=== PATIENT | male | born 1955 | race Caucasian/White ===

== ENCOUNTER 2019-05-03 11:14 | Emergency (ER) | payer MEDICARE, OTHER, SELFPAY ==
[2019-05-03 11:23] VITALS: BP 161/75; PULSE 78; RESP 16; TEMP 37; O2SAT 100
--- NOTE | 2019-05-03 11:45 | DI.RAD_ITS ---
SYMPTOM/DIAGNOSIS: TRAUMA,DISTAL INDEX AND MIDDLE FINGER LEFT HAND: 05/03 Three views were obtained and show soft tissue defects of the distal index and middle fingers. No underlying fracture or other significant bony abnormality seen.
--- NOTE | 2019-05-03 13:22 | W.ED.GENAD ---
Discharge Plan Disposition Patient Disposition: HOME Condition: Stable Discharge Details Chief Complaint: Laceration Clinical Impression: Laceration of finger, left, complicated Primary Care Provider: Lamine Silver ED Provider: Tommy Arthur Home Meds and New Rx's Prescriptions: New cephalexin [Keflex] 500 mg capsule 500 mg PO QID 5 Days Qty: 20 RF: 0 No Action aspirin [Aspir-81] 81 mg Tablet,Delayed Release (Dr/Ec) 1 RF: 0 Discharge Instructions Instructions: Finger Laceration (ED) Additional Instructions: Please watch wound for any signs of infection or complications return immediately if these occur. Otherwise please leave initial dressing on for the first 48 hours and after that keep wounds clean and dry. If healing well you may start to gently cleanse wounds with mild soap and water after initial dressings are removed. Return to the emergency department 2 weeks for suture removal. Referrals: [facility] Emergency Dept. [Outside] - 2 weeks Discharge Data Discharge Date/Time-TO BE ENTERED AT DEPARTURE: 05/03/19 13:50 Medical Decision Making Patient presenting the emergency department chief complaint of left hand/finger laceration. Patient was using a circular saw when he caught the index and middle finger in the saw. Physical exam shows significant irregular macerated lacerations to the distal aspects of the index and middle finger. The index finger is approximately 2.5 cm and the middle finger is 2.25 cm x 1 cm. Cap refill, sensation, tendon, and two-point discrimination are all intact and normal distal to injury. Patient sent to radiological imaging for for evaluation of any bony involvement. Review of radiological imaging and radiologist dictation shows no bony involvement. Patient verbally consented to digital block and wound closure. 3 mL's of 1% lidocaine was injected into the base of each digit for a total of 6 mL's of 1% lidocaine. Ring tourniquets were placed for hemostasis. Both wounds were thoroughly irrigated with 500 mL's each for total of 1 L of irrigation. Wound sterilely prepped with Betadine and wound closure was performed. Both wounds have irregular flaps and need of wound revision for moderate approximation of wound edges. On left index finger #5 simple interrupted sutures were placed with 4-0 Prolene. Left middle finger needed #4internal 5-0 Vicryl to approximate flaps and edges and then #11 external 4-0 Prolene were utilized to better approximate would not wound edges. Again wound revision was needed for even moderate approximation of flaps. Patient tolerated procedure well and tourniquets were removed with appropriate cap refill afterwards and hemostasis remained appropriate. Wounds were covered with bacitracin and sterile gauze. Patient to return in 14 days for suture removal. Given mechanism of injury patient placed on Keflex for 5 days. After discussion of diagnosis and plan of care patient has no further needs, questions, or concerns and states clear understanding to return to the emergency department for any worsening symptoms. HPI General Mode of arrival: ambulatory. Date/Time Provider Initiated Documentation: 05/03/19 11:31. Limitations to Documentation: no limitations. Information obtained by: patient and RN notes reviewed. History of Present Illness 63 year old M presents to the emergency department with the chief complaint of Left hand laceration, described as moderate, with intensity rated at 5. Quality is described as aching and sharp, and is localized to the left and upper extremity. Patient started experiencing this hour(s) (1) and it has been constant. Patient notes no other symptoms.. Patient did receive the following treatments prior to arrival, none Related Data Home Medications Medication Instructions Recorded Confirmed aspirin [Aspir-81] 1 05/03/19 cephalexin [Keflex] 500 mg PO QID 5 Days #20 cap 05/03/19 Previous Rx's Medication Instructions Recorded cephalexin [Keflex] 500 mg PO QID 5 Days #20 cap 05/03/19 Allergies Allergy/AdvReac Type Severity Reaction Status Date / Time acetaminophen [From Percocet] AdvReac Severe Psychosis Unverified 05/03/19 11:25 oxycodone [From Percocet] AdvReac Severe Psychosis Unverified 05/03/19 11:25 General Stated Complaint: Laceration JUAN LUIS: 4 Review of Systems Cardiovascular Denies syncope and Denies lightheadedness Musculoskeletal Denies deformity, Denies limited range of motion and Denies numbness Integumentary/Breasts Reports as per HPI Neurologic Denies syncope, Denies numbness and Denies paresthesias [facility] Social History Smoking/Tobacco Use Status: Never Substance use type: does not use Do you feel safe at home: Yes Do you feel safe in your relationship?: Yes Exam Const General: cooperative and no acute distress Orientation: alert, awake and oriented x3 Limitations: mental status not altered Resp Effort & Inspection: normal respiratory effort and able to speak in complete sentences Cardio Rate: regular rate Rhythm: regular rhythm Extrem General: normal exam except as noted Left upper extremity: hand Details: normal capillary refill, neuromotor exam normal, neurosensory exam normal, tendon exam normal, vascular exam Details: radial pulse present and normal capillary refill, normal ROM of fingers and laceration 2nd digit palmar aspect distal Details: linear, irregular, actively bleeding, involving subcutaneous tissue, with motor nerve function intact and with sensation intact; not contaminated, 3rd digit palmar aspect distal Details: linear, irregular, stellate, actively bleeding, involving subcutaneous tissue, with motor nerve function intact and with sensation intact; not contaminated Course Vital Signs Temperature 37 C 05/03/19 11:23 Pulse 78 05/03/19 11:23 Respiratory Rate 16 05/03/19 11:23 Blood Pressure 161/75 H 05/03/19 11:23 Pulse Oximetry 100 05/03/19 11:23 Temperature 37 C 05/03/19 11:23 Pulse 78 05/03/19 11:23 Respiratory Rate 16 05/03/19 11:23 Respiratory Effort Non-Labored 05/03/19 11:32 Blood Pressure 161/75 H 05/03/19 11:23 Pulse Oximetry 100 05/03/19 11:23 Oxygen Delivery Method Room Air 05/03/19 11:23 Oxygen Flow Rate 0 05/03/19 11:23 Pain Level 5 05/03/19 11:23
[2019-05-03] MEDS: Cephalexin 500 MG CAP PO (13:42)
== END 2019-05-03 13:50 | disposition home or self-care (01) ==
PROVIDERS: Emergency Provider Nurse Practitioner Family; PCP Internal Medicine
DX: S61.211A Laceration without foreign body of left index finger without damage to nail, initial encounter (principal); S61.213A Laceration without foreign body of left middle finger without damage to nail, initial encounter; W31.2XXA Contact with powered woodworking and forming machines, initial encounter
CPT/HCPCS: 12002; 90471; 99283; 73130

== ENCOUNTER 2019-05-19 14:39 | Emergency (ER) | payer MEDICARE, OTHER, SELFPAY ==
[2019-05-19 14:41] VITALS: BP 146/61; PULSE 63; RESP 20; TEMP 36.6; O2SAT 96
--- NOTE | 2019-05-19 14:44 | ED.GENADUL_ITS ---
Discharge Plan Disposition Patient Disposition: HOME Condition: Stable Discharge Details Chief Complaint: SutureRem Clinical Impression: Visit for suture removal Primary Care Provider: Lamine Silver ED Provider: Neris Blanco Home Meds and New Rx's Prescriptions: Continued aspirin [Aspir-81] 81 mg Tablet,Delayed Release (Dr/Ec) 81 mg PO DAILY RF: 0 Discharge Instructions Instructions: Stitches Removal (ED) Additional Instructions: Keep wound clean and dry. If risk of contamination, cover wound with dressing. If sitting at home resting, keep wound open to air to allow skin edges to dry. If you notice any mild redness, swelling or pain, apply topical antibiotic ointment twice daily. Follow-up with your primary care doctor next week for wound evaluation. Return to the emergency department if you develop any worsening or new concerning symptoms such as fever, increased pain, redness or swelling. Discharge Data Discharge Physician: Neris Blanco Medical Decision Making 63-year-old male here for suture removal of left second and third finger after extensive laceration when cut on skill saw 16 days ago. Review of previous records requested patient return at 14 days for suture removal. He has been keeping the wound covered most of the day. There appears to be whitish discoloration of skin center of wound on third finger likely consistent with moisture from continual dressing. Overall both wounds appear to be healing well without signs of infection and appear appropriate for suture removal. Patient had 5 Prolene sutures placed in left index finger and 11 Prolene sutures in left middle finger which were removed by nurse. Tube gauze dressings were pl aced after suture removal. Patient was advised to wash wounds with soap and water and cover if risk of contamination, otherwise keep open to air to allow the skin to dry. He is advised to follow-up with his primary care doctor for reevaluation and to return here at any time if worse. HPI General Mode of arrival: ambulatory . Date/Time Provider Initiated Documentation: 05/19/19 14:41 . Limitations to Documentation: no limitations . Information obtained by: patient . HPI Narrative: Patient is a 63-year-old male who presents for suture removal on left second and third finger after cut with a skill saw 16 days ago. Patient states he has been keeping the wound covered mo stly all day. He denies any fever, increased pain, redness or swelling. He finished the antibiotics completely. Related Data Home Medications Medication Instructions Recorded Confirmed aspirin [Aspir-81] 81 mg PO DAILY 05/03/19 05/19/19 Allergies Allergy/AdvReac Type Severity Reaction Status Date / Time acetaminophen [From Percocet] AdvReac Severe Psychosis Unverified 05/19/19 14:45 oxycodone [From Percocet] AdvReac Severe Psychosis Unverified 05/19/19 14:45 General JUAN LUIS: 4 Review of Systems Review of Systems All systems reviewed & are unremarkable except as noted in HPI and below PFSH Medical History Prostate CA (Chronic) Surgical History H/O hernia repair (Chronic) H/O prostatectomy (Chronic) Social History Smoking/Tobacco Use Status: Never Alcohol Intake: never Drug use: Never Substance use type: does not use Do you feel safe at home: Yes Do you feel safe in your relationship?: Yes Exam Const General: cooperative, healthy appearing and no acute distress HENMT Head: normal to inspection Mouth: oral mucosae normal Eyes General: appearance normal, both eyes and all related structures Neck Neck: normal visual inspection Resp Effort & Inspection: normal respiratory effort and able to speak in complete sentences Cardio Rate: regular rate Skin General skin exam: no rashes or lesions noted Neuro General: alert, awake and oriented x3 Motor: muscle tone normal throughout Extrem Hand/finger images: 1. 5 Prolene sutures noted in place on the volar aspect. Wound appears to be healing well. No signs of erythema or drainage. 2. 11 Prolene sutures noted in place on the volar aspect. Whitish discoloration of skin in middle of wound c/w moistened wound from frequent dressing but otherwise wound healing well. No signs of erythema or drainage. Psych Appearance: grossly normal Affect: normal affect
== END 2019-05-19 15:14 | disposition home or self-care (01) ==
PROVIDERS: Emergency Provider Physician Assistant; PCP Internal Medicine
DX: S61.211D Laceration without foreign body of left index finger without damage to nail, subsequent encounter (principal); S61.213D Laceration without foreign body of left middle finger without damage to nail, subsequent encounter; W31.2XXD Contact with powered woodworking and forming machines, subsequent encounter; Z48.02 Encounter for removal of sutures

== ENCOUNTER 2021-10-09 10:57 | Outpatient (CLI) | payer MEDICARE, OTHER, SELFPAY ==
--- NOTE | 2021-10-09 09:45 | DI.RAD_ITS ---
Exam(s) XR HIP PELVIS ADULT BL EXAM: XR HIP PELVIS ADULT BL CLINICAL HISTORY: bilateral hip pain. TECHNIQUE: 2D digital imaging was performed. COMPARISON: No exams were available for comparison FINDINGS: No pelvic nor hip fractures. No hip joint space narrowing. No osteophytes. Bone density appears no rmal. No osseous lesions evident. No evidence of osteo necrosis/AVN IMPRESSION: No significant radiographic findings in the hips. DATA REPOSITORY: RADIATION DOSE DELIVERED:
--- NOTE | 2021-10-09 09:45 | DI.RAD_ITS ---
Exam(s) XR KNEE RT 3V AP,LAT,TERRI EXAM: XR KNEE RT 3V AP,LAT,TERRI CLINICAL HISTORY: right knee pain. TECHNIQUE: 2D digital imaging was performed. COMPARISON: No exams were available for comparison FINDINGS: No evidence of fracture nor obvious joint effusion. No joint space narrowing. No osteophytes. No p osterior calcifications (as is seen in the opposite-left knee). Bone density is normal. No osseous lesions. IMPRESSION: DATA REPOSITORY: RADIATION DOSE DELIVERED:
--- NOTE | 2021-10-09 09:45 | DI.RAD_ITS ---
Exam(s) XR KNEE LT 3V AP,LAT,TERRI EXAM: XR KNEE LT 3V AP,LAT,TERRI CLINICAL HISTORY: left knee pain. TECHNIQUE: 2D digital imaging was performed. COMPARISON: CR XR KNEE RT 3V AP,LAT,TERRI from 10/09/2021 FINDINGS: No evidence of fracture nor joint effusion. No joint space narrowing nor osteophytes. Bone density is normal. No osseous lesions. On the frontal view there 2 small calcific densities seen projected over the lateral aspect of the joint. On the lateral image these appear to be posteriorly located an d either represent focal vascular calcification in the popliteal artery or loose body in a [address]. IMPRESSION: DATA REPOSITORY: RADIATION DOSE DELIVERED:
== END 2021-10-09 10:58 | disposition home or self-care (01) ==
LOC: DIORS 10:57
PROVIDERS: PCP Family Medicine; Referring Provider Internal Medicine; Visit Provider Student in an Organized Health Care Education/Training Program
DX: M25.562 Pain in left knee (principal); M25.561 Pain in right knee; M25.851 Other specified joint disorders, right hip; M25.852 Other specified joint disorders, left hip; M70.61 Trochanteric bursitis, right hip; M70.62 Trochanteric bursitis, left hip
CPT/HCPCS: 73521; 73562; 99213

== ENCOUNTER 2021-10-31 00:47 | Outpatient (CLI) | payer MEDICARE, OTHER, SELFPAY ==
--- NOTE | 2021-10-31 08:00 | DI.RAD_ITS ---
Exam(s) RF JOINT INJECTION FLUORO GUID EXAM: RF JOINT INJECTION FLUORO GUID CLINICAL HISTORY: LEFT HIP PAIN,TROCHANTERIC BURSITIS,FEMORAL ACETABULAR IMPINGEMENT TECHNIQUE: 2D and realtime digital imaging was performed. CONTRAST MATERIAL: Water soluble contrast was administered. COMPARISON: No exams were available for comparison FINDINGS: Fluoroscopy was provided for Dr. Leonard during the performance of a left hip injection. Please re cheryl to the procedure report for complete details. RADIATION DOSE DELIVERED: Ka,r= mGy
--- NOTE | 2021-10-31 08:00 | DI.RAD_ITS ---
Exam(s) RF JOINT INJECTION FLUORO GUID EXAM: RF JOINT INJECTION FLUORO GUID CLINICAL HISTORY: R HIP PAIN, FEMOROACETABULAR IMPINGEMENT,TROCHANTERIC BURSITIS TECHNIQUE: 2D and realtime digital imaging was performed. CONTRAST MATERIAL: Water soluble contrast was administered. COMPARISON: No exams were available for comparison FINDINGS: Fluoroscopy was provided for Dr. Leonard during the performance of a right hip injection. Please r efer to the procedure report for complete details. RADIATION DOSE DELIVERED: Ka,r= mGy
--- NOTE | 2021-10-31 14:20 | W.PROCNOTE ---
Procedure Note Date of procedure: 10/31/21 Procedure: Bilateral Hip Injection with Fluoroscopic Guidance Surgeon/Proceduralist/Physician: Tyrone Leonard Procedure Diagnosis: Bilateral Hip Osteoarthritis Procedure Indications: Taye has had persistent pain of the BILATERAL hip and groin. Noninvasive measures have been tried. To serve as both diagnostic and therapeutic, an injection under fluoroscopy was recommended. I had discussed the risks of the procedure and the patient elected to proceed. Procedure Description: Taye was greeted in the flouroscopy room. The consent was reviewed with the patient and signed. The patient was then placed in the supine position on the fluoroscopy table. The RIGHT hip was then prepped with Chloraprep. The anterolateral injection starting point was identiifed by bony landmarks and fluoroscopy. The skin and soft tissue in the tract of the injection was anesthetized with 1% Lidocaine. A spinal needle was then inserted deep into the hip joint at the level of the lateral femoral neck under fluoroscopic guidance. A small amount of Omnipaque solution was injected to confirm intraarticular placement. Once confirmed, the hip was injected with 5cc of 0.5% Bupivicaine and 80mg of Depo-Medrol. A bandaid was placed on the injection site. The LEFT hip was then prepped with Chloraprep. The anterolateral injection starting point was identiifed by bony landmarks and fluoroscopy. The skin and soft tissue in the tract of the injection was anesthetized with 1% Lidocaine. A spinal needle was then inserted deep into the hip joint at the level of the lateral femoral neck under fluoroscopic guidance. A small amount of Omnipaque solution was injected to confirm intraarticular placement. Once confirmed, the hip was injected with 5cc of 0.5% Bupivicaine and 80mg of Depo-Medrol. A bandaid was placed on the injection site. The patient tolerated the procedure well.
[2021-10-31] MEDS: Bupivacaine 0.5% Pres-Free 10 ML VIAL 5 ML IJ (14:24)
[2021-10-31] MEDS: Omnipaque 300 MG/ML 10 ML BTL IJ (14:25)
[2021-10-31] MEDS: methylPREDNISolone ACETATE 80 MG/ML VIAL IM (14:26)
== END 2021-10-31 01:07 ==
PROVIDERS: PCP Family Medicine; Visit Provider Student in an Organized Health Care Education/Training Program
DX: M16.11 Unilateral primary osteoarthritis, right hip (principal); M16.12 Unilateral primary osteoarthritis, left hip; M25.551 Pain in right hip; M25.552 Pain in left hip; R10.31 Right lower quadrant pain; R10.32 Left lower quadrant pain
CPT/HCPCS: 20610; 77002; J1040

== ENCOUNTER → 2021-12-12 09:42 | Outpatient (BNVA) | payer MEDICARE, OTHER, SELFPAY | PROVIDERS: PCP Family Medicine; Referring Provider Family Medicine; Visit Provider Student in an Organized Health Care Education/Training Program | DX: M70.61 Trochanteric bursitis, right hip (principal); M70.62 Trochanteric bursitis, left hip | CPT/HCPCS: 99212 ==

== ENCOUNTER → 2024-03-01 01:16 | Outpatient (CLI) | payer MEDICARE, OTHER, SELFPAY ==
--- NOTE | 2024-03-01 10:00 | DI.RAD_ITS ---
Exam(s) XR FOOT LT COMPLETE EXAM: XR FOOT LT COMPLETE CLINICAL HISTORY: Left foot pain,m79.672. TECHNIQUE: 2D digital imaging was performed. COMPARISON: No exams were available for comparison FINDINGS: 3 views No evidence of fracture nor diastasis of the Lisfranc joint. There is an oval os ossific density wit hin the region of the Lisfranc joint which is most probably accessory ossicle known as os intermetata rsale. Great toe metatarsophalangeal joint as well as other articulations appear unremarkable. No o sseous lesions and no erosions. IMPRESSION: As above. DATA REPOSITORY: RADIATION DOSE DELIVERED:
--- NOTE | 2024-03-01 10:00 | DI.RAD_ITS ---
Exam(s) XR FOOT RT COMPLETE EXAM: XR FOOT RT COMPLETE CLINICAL HISTORY: Right foot pain,m79.671. TECHNIQUE: 2D digital imaging was performed. COMPARISON: CR XR FOOT LT COMPLETE from 03/01/2024 FINDINGS: 3 views There is dorsal soft tissue swelling over the foot noted. No evidence of acute fracture. There is some degenerative subarticular cysts seen in the medial aspe ct of the head of the great toe metatarsal. There is no significant narrowing of the great toe metat arsophalangeal joint nor of the other MTP joints. Osteophytic density on the medial aspect of the fo ot adjacent to the navicular tuberosity is most probably an ununited apophysis or accessory ossicle. No osseous lesions nor erosions. No radiopaque foreign body. Inferior calcaneal spur noted. There is no calcification in the plantar fascia. IMPRESSION: Findings as above. DATA REPOSITORY: RADIATION DOSE DELIVERED:
== END ==
PROVIDERS: PCP Family Medicine; Visit Provider Podiatrist
DX: M79.671 Pain in right foot (principal); M79.672 Pain in left foot
CPT/HCPCS: 20550; 64455; 73630

== ENCOUNTER → 2024-03-30 08:58 | Outpatient (BNVA) | payer MEDICARE, OTHER, SELFPAY | PROVIDERS: PCP Family Medicine; Referring Provider Family Medicine; Visit Provider Podiatrist | DX: B35.1 Tinea unguium (principal); M72.2 Plantar fascial fibromatosis; M67.01 Short Achilles tendon (acquired), right ankle; M67.02 Short Achilles tendon (acquired), left ankle; L60.0 Ingrowing nail; L60.3 Nail dystrophy; M79.674 Pain in right toe(s); M79.672 Pain in left foot | CPT/HCPCS: 11750 ==

== ENCOUNTER → 2024-04-19 15:01 | Outpatient (BNVA) | payer MEDICARE, OTHER, SELFPAY | PROVIDERS: PCP Family Medicine; Referring Provider Family Medicine; Visit Provider Podiatrist | DX: L60.0 Ingrowing nail (principal); M79.671 Pain in right foot; B35.1 Tinea unguium; M72.2 Plantar fascial fibromatosis; M67.01 Short Achilles tendon (acquired), right ankle; M67.02 Short Achilles tendon (acquired), left ankle; L60.3 Nail dystrophy | CPT/HCPCS: 11750 ==

== ENCOUNTER → 2024-05-11 15:17 | Outpatient (BNVA) | payer MEDICARE, OTHER, SELFPAY | PROVIDERS: PCP Family Medicine; Referring Provider Family Medicine; Visit Provider Podiatrist | DX: L60.0 Ingrowing nail (principal); M79.671 Pain in right foot; B35.1 Tinea unguium; M72.2 Plantar fascial fibromatosis; M67.01 Short Achilles tendon (acquired), right ankle; M67.02 Short Achilles tendon (acquired), left ankle; L60.3 Nail dystrophy | CPT/HCPCS: 99213 ==

== ENCOUNTER 2024-07-08 05:40 | Emergency (ER) | payer MEDICARE, OTHER, SELFPAY ==
[2024-07-08] VITALS (14 sets, daily range): BP systolic 130–160; BP diastolic 57–82; PULSE 86–94; RESP 12–21; TEMP 37.4–37.5; O2SAT 94–96
--- NOTE | 2024-07-08 05:45 | RT.EKG_ITS ---
APPROVED REPORT Exam: Resting ECG Reason for Exam: short of breath Patient Location: E HR:88 bpm ECG Measurements Heart Rate 88 AXIS MA 232 P 42 QRSd 84 QRS 48 QT 370 T 55 QTc 449 Conclusion Sinus rhythm...normal P axis, V-rate 60- 99 Prolonged MA interval...MA >220, V-rate 50- [address] segment or T wave abnormalities to suggest occlusive WA
[2024-07-08 06:33] LABS: Influenza A PCR Negative (Negative); Influenza B PCR Negative (Negative); RSV PCR Negative (Negative)
[2024-07-08 06:37] LABS: Source Nasopharynx
[2024-07-08 06:39] LABS: COVID-19 PCR Positive (Negative)
--- NOTE | 2024-07-08 06:45 | DI.RAD_ITS ---
Exam(s) XR CHEST 2V PA LATERAL EXAM: XR CHEST 2V PA LATERAL CLINICAL HISTORY: SOB. TECHNIQUE: 2D digital imaging was performed. COMPARISON: No exams were available for comparison FINDINGS: 2 views: Heart size is normal. The mediastinum is not widened. Lungs are clear. No infiltrates nor pleural effusions. IMPRESSION: No acute pulmonary findings. DATA REPOSITORY: RADIATION DOSE DELIVERED:
--- NOTE | 2024-07-08 06:50 | ED.GENADUL_ITS ---
Discharge Plan Disposition Patient Disposition: Home Condition: Good Discharge Details Clinical Impression: COVID-19 Primary Care Provider: John Paul Ellis ED Provider: Renae Cain Home Meds and New Rx's Prescriptions: New Paxlovid 300 mg (150 mg x 2)-100 mg tablets,dose pack See Rx Instructions .ROUTE .COMPLEX Qty: 30 0RF Rx Instructions: take TWO 150 mg tablets of nirmatrelvir with ONE 100 mg tablet of ritonavir twice daily for 5 days ondansetron 4 mg tablet,disintegrating 4 mg PO Q8H PRNQty: 20 0RF Continued chlorthalidone 50 mg tablet 50 mg PO DAILY flaxseed oil 1,000 mg capsule 1,000 mg PO DAILY Rx Instructions: administer with a meal zinc citrate, zinc oxide 50 mg tablet 50 mg PO DIRECTED aspirin [Aspir-81] 81 mg Tablet,Delayed Release (Dr/Ec) 81 mg PO DAILY Discharge Instructions Instructions: COVID-19 ED Additional Instructions: Take the Paxlovid as prescribed until it is all gone. Do not take your statin for the 5 days you are taking this medication. Tylenol and ibuprofen over the counter for pain; follow the directions on the bottle. Zofran up to every 8 hours as needed for nausea. Call your primary care doctor today to schedule an appointment for within the next 72 hours to followup on your visit here. Return to the emergency department for new or worsening symptoms including difficulty breathing, inability to keep down fluids, new/different/worse pain, or if you have any other concerns. Referrals: John Paul Ellis [Primary Care Provider] - [facility] General Mode of arrival: ambulatory . Date/Time Provider Initiated Documentation: 07/08/24 05:51 . Limitations to Documentation: no limitations . Information obtained by: patient . HPI Narrative: 68yo M with hx GERD, peripheral edema, presenting for malaise. For the past two days has had whole body aches, headache, sore throat, cough, nausea and decrea sed PO intake. No vomiting, diarrhea, or constipation. No fevers. whole body pain is 10/10 in severity. Headache is mild, diffuse and dull. Also reports crampy lower abdominal pain for the past two days. BMs sometimes streaked with blood, he reports this is not new. Has not taken anything at home for pain. Feels somewhat short of breath, especially with coughing. Otherwise in his usual state of health. Related Data Home Medications ?Medication ?Instructions ?Recorded ?Confirmed aspirin 81 mg tablet,delayed 81 mg PO DAILY 05/03/19 07/08/24 release (Aspir-) chlorthalidone 50 mg tablet 50 mg PO DAILY diuretic 03/01/24 07/08/24 flaxseed oil 1,000 mg capsule 1,000 mg PO DAILY hand swelling 03/01/24 07/08/24 zinc citrate, zinc oxide 50 mg 50 mg PO DIRECTED 03/01/24 07/08/24 tablet nirmatrelvir 300 mg (150 mg See Rx Instructions PO .COMPLEX 07/08/24 x2)-ritonavir 100 mg tablet,dose #30 dose pk pack (Paxlovid) ondansetron 4 mg disintegrating 4 mg PO Q8H PRN #20 tabs 07/08/24 tablet Previous Rx's ?Medication ?Instructions ?Recorded nirmatrelvir 300 mg (150 mg See Rx Instructions PO .COMPLEX 07/08/24 x2)-ritonavir 100 mg tablet,dose #30 dose pk pack (Paxlovid) ondansetron 4 mg disintegrating 4 mg PO Q8H PRN #20 tabs 07/08/24 tablet Allergies Allergy/AdvReac Type Severity Reaction Status Date / Time acetaminophen (From Percocet) AdvReac Severe Psychosis Unverified 07/08/24 07:00 oxycodone (From Percocet) AdvReac Severe Psychosis Unverified 07/08/24 07:00 General Stated Complaint: RespSymp JUAN LUIS: 3 Review of Systems Narrative: see HPI Exam Narrative Exam Narrative: General: Alert, well appearing, well nourished, in no acute distress. Head: Normocephalic, atraumatic Neck: Trachea midline, ?Neck supple. ENT: ?MMM.? Cardiac: ?RRR, no murmurs appreciated Resp: No respiratory distress. Diminished breath sounds right lung base, otherwise CTAB. Abd: ?Soft, non-distended, minimally TTP diffusely with no rebound or guarding. : ?No suprapubic tenderness. Extremities: ?No deformities.? No peripheral edema. Neurologic: GCS 15. ? Moves all extremities freely against gravity Course Vital Signs Vital signs: Vital Signs Temperature 37.4 C 07/08/24 05:43 Pulse 90 07/08/24 05:43 Respiratory Rate 18 07/08/24 05:43 Blood Pressure 132/78 07/08/24 05:43 Pulse Oximetry 95 07/08/24 05:43 Temperature 37.4 C 07/08/24 05:47 Temperature Source Oral 07/08/24 05:47 Pulse 90 07/08/24 05:47 Respiratory Rate 18 07/08/24 05:47 Respiratory Effort Normal, Non-Labored 07/08/24 05:47 Respiratory Depth Normal 07/08/24 05:47 Blood Pressure 132/78 07/08/24 05:47 Blood Pressure Position Sitting 07/08/24 05:47 Pulse Oximetry 95 07/08/24 05:47 Oxygen Delivery Method Room Air 07/08/24 05:47 Oxygen Flow Rate 0 07/08/24 05:43 Pain Level 10 07/08/24 05:47 Lab/Test Results Lab/Test Results: Laboratory Tests Range/Units 07/08/24 05:55 COVID-19 Source Nasopharynx SARS-CoV-2 (PCR) (Negative) Positive A Influenza Type A (PCR) (Negative) Negative Influenza Type B (PCR) (Negative) Negative RSV (PCR) (Negative) Negative Medical Decision Making 68yo M with hx GERD, peripheral edema, presenting for malaise. Two days of whole body aches, headache, sore throat, cough, nausea, crampy lower abdominal pain, and decreased PO intake. whole body pain is 10/10 in severity, has not taken anything at home for pain. Normal vital signs on arrival, afebrile. No increased WOB or wheeze, slightly diminished lung sounds in right lung base. Given lung findings, will get CXR to evaluate for pneumonia. Not septic, no respiratory distress, benign abdominal exam; would not get labs or CT imaging. Will treat symptoms with tylenol, toradol, zofran. Respiratory viral swab + for COVID which likely explains pt's symptoms. CXR with no focal pneumonia on my view, agree with radiology read below. Based on age pt qualifies for Paxlovid; home medications rousovastatin, chlorthalidone, protonix: advised to hold statin while on Paxlovid. Prescription sent to his pharmacy as well zofran. On reassessments he reports improvement in pain and nausea. Vital signs remain reassuring. Discharged home; discharge instructions and return precautions were reviewed with patient who verbalized understanding. All questions were anwered and he is in full agreement with the plan. Imaging Data Radiologic Study: Imaging: X-Ray Radiologist's impression: IMPRESSION: No acute findings to explain reported symptoms. Lab Data Lab results reviewed: Yes I reviewed the patient's lab results. Labs: Laboratory Tests Range/Units 07/08/24 05:55 COVID-19 Source Nasopharynx SARS-CoV-2 (PCR) (Negative) Positive A Influenza Type A (PCR) (Negative) Negative Influenza Type B (PCR) (Negative) Negative RSV (PCR) (Negative) Negative Quality:SDOH Health Related Social Needs: No Data to Display PFSH All Active Problems (Updated 07/08/24 @ 07:20 by Renae Cain MD) COVID-19 (Acute) Pain in right foot (Acute) Ingrown right big toenail (Acute) Nail dystrophy (Acute) Onychomycosis (Acute) Ingrown toenail of left foot (Acute) Achilles tendon contracture, bilateral (Acute) Plantar fasciitis, bilateral (Acute) Femoral acetabular impingement (Acute) Trochanteric bursitis of both hips (Acute) Medical History (Updated 07/08/24 @ 07:20 by Renae Cain MD) Prostate CA Surgical History H/O prostatectomy H/O hernia repair Social History Smoking/Tobacco Use Status: Never Smoking risk assessment performed?: Yes Alcohol Intake: never Drug use: Never Substance use type: does not use Housing: house Current gender identity: male Do you feel safe at home: Yes Do you feel safe in your relationship?: Yes
[2024-07-08] MEDS: Acetaminophen 500 MG TAB 1000 MG PO (07:12)
[2024-07-08] MEDS: Ketorolac 15 MG/ML VIAL IM (07:16)
[2024-07-08] MEDS: Ondansetron O.D.T. 4 MG TABEF PO (07:28)
--- NOTE | 2024-07-08 08:03 | DI.VRAD_ITS ---
PROCEDURE INFORMATION: Exam: XR Chest Exam date and time: 07/08/2024 7:29 AM Age: 68 years old Clinical indication: Shortness of breath; Patient HX: SOB TECHNIQUE: Imaging protocol: Radiologic exam of the chest. Views: 2 views. COMPARISON: No relevant prior studies available. FINDINGS: Lungs: No focal consolidation seen. Pleural spaces: No large pleural effusion seen. Heart/Mediastinum: No cardiomegaly. Bones/joints: No acute abnormality. IMPRESSION: No acute findings to explain reported symptoms. Dictated and Authenticated by: Natalie Collazo MD. Ordering:DAVID Macdonald MD
== END 2024-07-08 08:46 | disposition home or self-care (01) ==
PROVIDERS: Emergency Provider Student in an Organized Health Care Education/Training Program; PCP Family Medicine
DX: U07.1 COVID-19 (principal); Z79.82 Long term (current) use of aspirin
CPT/HCPCS: 80053; 87637; 93005; 96361; 96372; 96374; 96375; 99284; 71045; 71046; 85025; 93010; 99283; J0131; J1100; J1885; J2765

== ENCOUNTER 2024-07-08 17:23 | Emergency (ER) | payer MEDICARE, OTHER, SELFPAY ==
[2024-07-08] VITALS (14 sets, daily range): BP systolic 126–155; BP diastolic 31–77; PULSE 93–113; RESP 15–16; TEMP 38.9; O2SAT 90–95
--- NOTE | 2024-07-08 18:09 | W.ED.GENAD ---
Discharge Plan Disposition Patient Disposition: Home Condition: Improving Discharge Details Clinical Impression: Nausea & vomiting, COVID-19 Primary Care Provider: John Paul Ellis ED Provider: Julissa Gaines Home Meds and New Rx's Prescriptions: New metoclopramide HCl [Reglan] 10 mg tablet 10 mg PO Q6H MDD 60mg PRN (Reason: nausea and vomiting) 7 Days Qty: 28 0RF Rx Instructions: Take 1 tablet up to 4 times daily as needed for nausea and vomiting. acetaminophen 650 mg suppository 650 mg TN Q6H PRN (Reason: fever or pain) Qty: 12 0RF Rx Instructions: Take 1 suppository rectally every 6 hours as needed for fever promethazine [Promethegan] 25 mg suppository 25 mg TN Q6H PRN (Reason: nausea and vomiting) Qty: 12 0RF Rx Instructions: Use 1 suppository as needed for unresolved nausea vomiting No Action chlorthalidone 50 mg tablet 50 mg PO DAILY flaxseed oil 1,000 mg capsule 1,000 mg PO DAILY Rx Instructions: administer with a meal zinc citrate, zinc oxide 50 mg tablet 50 mg PO DIRECTED aspirin [Aspir-81] 81 mg Tablet,Delayed Release (Dr/Ec) 81 mg PO DAILY Paxlovid 300 mg (150 mg x 2)-100 mg tablets,dose pack See Rx Instructions .ROUTE .COMPLEX Qty: 30 0RF Rx Instructions: take TWO 150 mg tablets of nirmatrelvir with ONE 100 mg tablet of ritonavir twice daily for 5 days ondansetron 4 mg tablet,disintegrating 4 mg PO Q8H PRNQty: 20 0RF Discharge Instructions Instructions: COVID-19 ED, Nausea and Vomiting, Adult ED Additional Instructions: Please take the medications as prescribed. Take the Reglan as prescribed and the Tylenol suppository as needed for fever. If you have continued nausea vomiting please take the rectal Phenergan. The prescriptions have been sent to the pharmacy and let them fill on file. Return for O2 sat lower than 90%, if you are unable to keep the medications down despite the above-mentioned. Or concerns. Follow up with primary care provider in 3-5 days. Return to ED sooner if any worsening or concerns. Please take Tylenol or Ibuprofen with food every 4-6 hours as needed for pain and swelling. Thank you for allowing us to care for you today. Chest x-ray shows no pneumonia at this time. Referrals: John Paul Ellis [Primary Care Provider] - 5 days HPI General Mode of arrival: ambulatory. Date/Time Provider Initiated Documentation: 07/08/24 17:26. Limitations to Documentation: no limitations. Information obtained by: patient, RN notes reviewed and old records reviewed. HPI Narrative: 68-year-old male presents to the ER after being seen this morning diagnosed with COVID. He reports since then he has been unable to hold on the medications. He does have Zofran 4 mg ODT at home which he reports he has been putting under his tongue as directed. He reports putting anything in his stomach he vomits. He is complaining of nausea upon arrival. He has been able to hold down the Paxlovid. He presents tachycardic with a temperature. 38.9. No increased work of breathing O2 sat 93% on room air. Related Data Home Medications ?Medication ?Instructions ?Recorded ?Confirmed aspirin 81 mg tablet,delayed 81 mg PO DAILY 05/03/19 07/08/24 release (Aspir-) chlorthalidone 50 mg tablet 50 mg PO DAILY diuretic 03/01/24 07/08/24 flaxseed oil 1,000 mg capsule 1,000 mg PO DAILY hand swelling 03/01/24 07/08/24 zinc citrate, zinc oxide 50 mg 50 mg PO DIRECTED 03/01/24 07/08/24 tablet acetaminophen 650 mg rectal 650 mg TN Q6H PRN fever or pain 07/08/24 suppository #12 ea metoclopramide HCl 10 mg tablet 10 mg PO Q6H PRN nausea and 07/08/24 (Reglan) vomiting 7 days #28 tabs nirmatrelvir 300 mg (150 mg See Rx Instructions PO .COMPLEX 07/08/24 x2)-ritonavir 100 mg tablet,dose #30 dose pk pack (Paxlovid) ondansetron 4 mg disintegrating 4 mg PO Q8H PRN #20 tabs 07/08/24 tablet promethazine 25 mg rectal 25 mg TN Q6H PRN nausea and 07/08/24 suppository (Promethegan) vomiting #12 ea Previous Rx's ?Medication ?Instructions ?Recorded acetaminophen 650 mg rectal 650 mg TN Q6H PRN fever or pain 07/08/24 suppository #12 ea metoclopramide HCl 10 mg tablet 10 mg PO Q6H PRN nausea and 07/08/24 (Reglan) vomiting 7 days #28 tabs nirmatrelvir 300 mg (150 mg See Rx Instructions PO .COMPLEX 07/08/24 x2)-ritonavir 100 mg tablet,dose #30 dose pk pack (Paxlovid) ondansetron 4 mg disintegrating 4 mg PO Q8H PRN #20 tabs 07/08/24 tablet promethazine 25 mg rectal 25 mg TN Q6H PRN nausea and 07/08/24 suppository (Promethegan) vomiting #12 ea Allergies Allergy/AdvReac Type Severity Reaction Status Date / Time acetaminophen (From Percocet) AdvReac Severe Psychosis Unverified 07/08/24 17:30 oxycodone (From Percocet) AdvReac Severe Psychosis Unverified 07/08/24 17:30 General Stated Complaint: GenMedical JUAN LUIS: 3 Review of Systems All systems reviewed & are unremarkable except as noted in HPI and below Constitutional Constitutional: Reports fever(s) Gastrointestinal Gastrointestinal: Denies abdominal pain, Reports nausea and Reports vomiting Exam Narrative Exam Narrative: Constitutional: Alert and oriented x3. Appears stated age. Normal body habitus. Head: Normocephalic, no trauma. Eyes: Pupils PERRL, Red reflex noted, EOM's intact. Eyelids symmetrical without lesions, discharge, or swelling. ENT: Bilateral TM's WNL, External ear normal to inspection, no mastoid TTP, swelling, or erythema, Nasal turbinates WNL, no nasal discharge. Normal dentition, Posterior pharynx WNL, no exudate. Chest: RRR, Normal S1, S2, distal pulses intact. Resp: Lungs clear to auscultation bilaterally, no wheezes, rales, or rhonchi. Abdomen: Soft, non-distended, Normoactive bowel sounds all 4 quads. Musculoskeletal: Normal gait, Moves all 4 extremities without difficulty. Skin: No suspicious rashes or lesions. Capillary refill less than 2 sec. Neurologic: Cranial nerves II-XII intact. Alert and oriented x 3. Motor: No deficits noted. Sensory: Intact bilaterally all 4 extremities. Hematologic/Lymphatic: No ecchymosis, no lymphadenopathy. Course Vital Signs Vital signs: Vital Signs Temperature 38.9 C H 07/08/24 17:27 Pulse 113 H 07/08/24 17:27 Respiratory Rate 16 07/08/24 17:27 Blood Pressure 155/77 H 07/08/24 17:27 Pulse Oximetry 93 07/08/24 17:27 Temperature 38.9 C H 07/08/24 17:27 Temperature Source Oral 07/08/24 17:27 Pulse 113 H 07/08/24 17:27 Respiratory Rate 16 07/08/24 17:27 Blood Pressure 155/77 H 07/08/24 17:27 Blood Pressure Position Supine 07/08/24 17:27 Pulse Oximetry 93 07/08/24 17:27 Oxygen Delivery Method Room Air 07/08/24 17: Oxygen Flow Rate 0 07/08/24 17:27 Pain Level 7 07/08/24 17:27 Medical Decision Making 68-year-old male presents to the ER after being seen this morning diagnosed with COVID. He reports since then he has been unable to hold on the medications. He does have Zofran 4 mg ODT at home which he reports he has been putting under his tongue as directed. He reports putting anything in his stomach he vomits. He is complaining of nausea upon arrival. He has been able to hold down the Paxlovid. He presents tachycardic with a temperature. 38.9. No increased work of breathing O2 sat 93% on room air. Will try 8 milligrams Zofran ODT will consider IV if needed. Nausea medication not working, will order IV CBC CMP fluids Reglan and a gram of Tylenol. Also chest x-ray ordered. X-ray shows no evidence of pneumonia, CBC shows white blood cell count of 13.2, sodium 137 potassium 3.4 chloride 97 glucose 160 AST and ALT are slightly elevated at 63 and 72. Patient given Reglan and Tylenol and has improved. Patient reports his nausea is better. Will send home with Reglan tablet to go and a rectal suppository of Tylenol if fever resumes. Prescription sent for Reglan, Tylenol suppositories and Phenergan suppositories if needed. Discussed home care strict return instructions and follow-up care. This text was generated using [employer] system, please disregard any oddities of phrase or misspellings. Medical Records Medical records reviewed: Yes I reviewed the patient's medical records. Lab Data Lab results reviewed: Yes I reviewed the patient's lab results. Labs: Laboratory Tests Range/Units 07/08/24 20:20 WBC (4.4-10.8) 10^3/uL 13.21 H RBC (4.36-5.78) 10^6/uL 4.45 Hgb (13.5-17.5) g/dL 13.8 Hct (40.0-50.0) % 40.7 MCV (80-95) fL 92 MCH (27.0-33.0) pg 31.0 MCHC (32.0-36.0) % 33.9 RDW (11.8-14.1) % 12.9 Plt Count (130-400) 10^3/uL 261 MPV (8.0-11.0) fL 9.3 Immature Gran % % 0.5 Neutrophils % % 81.2 Lymphocytes % % 6.9 Monocytes % % 10.0 Eosinophils % % 0.9 Basophils % % 0.5 Nucleated RBC % (0.0-0.3) % 0.0 Absolute Neutrophils (1.2-6.7) 10^3/uL 10.73 H Absolute Lymphocytes (1.2-3.4) 10^3/uL 0.91 L Absolute Monocytes (0.1-0.8) 10^3/uL 1.32 H Absolute Eosinophils (0.0-0.7) 10^3/uL 0.12 Absolute Basophils (0.0-0.2) 10^3/uL 0.07 Sodium (136-145) mmol/L 137 Potassium (3.5-5.1) mmol/L 3.4 L Chloride (98-107) mmol/L 97 L Carbon Dioxide (21.0-32.0) mmol/L 31.6 Anion Gap (3-11) mmol/L 8.4 BUN (7-18) mg/dL 18 Creatinine (0.70-1.30) mg/dL 1.3 Est GFR (CKD-EPI 2020) (mL/min/1.73m2) 59.10 Glucose (74-106) mg/dL 160 H Calcium (8.5-10.1) mg/dL 9.7 Total Bilirubin (0.2-1.0) mg/dL 0.72 AST (15-37) U/L 63 H ALT (16-63) U/L 72 H Alkaline Phosphatase (46-116) U/L 92 Total Protein (6.4-8.2) g/dL 8.2 Albumin (3.4-5.0) g/dL 3.9 Quality:SDOH Health Related Social Needs: No Data to Display PFSH All Active Problems (Updated 07/08/24 @ 21:11 by Julissa Gaines NP) Nausea & vomiting (Acute) COVID-19 (Acute) Pain in right foot (Acute) Ingrown right big toenail (Acute) Nail dystrophy (Acute) Onychomycosis (Acute) Ingrown toenail of left foot (Acute) Achilles tendon contracture, bilateral (Acute) Plantar fasciitis, bilateral (Acute) Femoral acetabular impingement (Acute) Trochanteric bursitis of both hips (Acute) Medical History (Updated 07/08/24 @ 21:11 by Julissa Gaines NP) Prostate CA Surgical History H/O prostatectomy H/O hernia repair Social History Smoking/Tobacco Use Status: Never Smoking risk assessment performed?: Yes Alcohol Intake: never Drug use: Never Substance use type: does not use Housing: house Current gender identity: male Do you feel safe at home: Yes Do you feel safe in your relationship?: Yes
[2024-07-08] MEDS: Ondansetron O.D.T. 4 MG TABEF 8 MG PO (18:51)
--- NOTE | 2024-07-08 19:15 | DI.RAD_ITS ---
Exam(s) XR PORTABLE CHEST AP EXAM: XR PORTABLE CHEST AP CLINICAL HISTORY: Covid +. TECHNIQUE: 2D digital imaging was performed. COMPARISON: CR,XR XR CHEST 2V PA LATERAL from 07/08/2024 FINDINGS: Single AP portable view. Heart size is upper normal. The mediastinum is not widened. Lungs are clear. No infiltrates nor obvious pleural effusions. IMPRESSION: No acute pulmonary findings on this single AP portable view of the chest. DATA REPOSITORY: RADIATION DOSE DELIVERED:
--- NOTE | 2024-07-08 20:11 | DI.VRAD_ITS ---
PROCEDURE INFORMATION: Exam: XR Chest Exam date and time: 07/08/2024 7:36 PM Age: 68 years old Clinical indication: Other: Covid +; Additional info: Covid + TECHNIQUE: Imaging protocol: Radiologic exam of the chest. Views: 1 view. COMPARISON: CR XR CHEST 2V PA LATERAL 07/08/2024 7:29 AM FINDINGS: Lungs: Parenchymal mass or consolidation detected. Pleural spaces: No pneumothorax or pleural effusion is seen. Heart/Mediastinum: Heart size is normal and vessel margins are sharply defined. Bones/joints: No acute osseous lesions are detected. IMPRESSION: No acute findings. Dictated and Authenticated by: Lamine Chua MD. Ordering:AMBER Costa MD
[2024-07-08] MEDS: Metoclopramide 10 MG/2 ML VIAL IVP (20:24)
[2024-07-08] MEDS: ACETAMINOPHEN 1,000 MG/100 ML BAG 400 MG IVPB (20:24)
[2024-07-08] MEDS: Normal Saline 500 ML IV (20:27)
[2024-07-08 20:30] LABS: Abs Immature Grans 0.06 10^3/uL (0.0-0.06); Absolute Basophil Count 0.07 10^3/uL (0.0-0.2); Absolute Eosinophil Count 0.12 10^3/uL (0.0-0.7); Absolute Lymphocyte Count 0.91 10^3/uL (1.2-3.4); Absolute Monocyte Count 1.32 10^3/uL (0.1-0.8); Absolute Neutrophil Count 10.73 10^3/uL (1.2-6.7); Basophils % 0.5 %; Eosinophils % 0.9 %; HCT 40.7 % (40.0-50.0); HGB 13.8 g/dL (13.5-17.5); Immature Grans % 0.5 %; Lymphocytes % 6.9 %; MCHC 33.9 % (32.0-36.0); MCV 92 fL (80-95); MPV 9.3 fL (8.0-11.0); Neutrophils % 81.2 %; Platelet Count 261 10^3/uL (130-400); RBC 4.45 10^6/uL (4.36-5.78); RDW 12.9 % (11.8-14.1); RDW-SD 42.7 fL; WBC 13.21 10^3/uL (4.4-10.8)
[2024-07-08 20:45] LABS: ALT 72 U/L (16-63); AST 63 U/L (15-37); Albumin 3.9 g/dL (3.4-5.0); Alkaline Phosphatase 92 U/L (46-116); Anion Gap 8.4 mmol/L (3-11); BUN 18 mg/dL (7-18); Bilirubin, Total 0.72 mg/dL (0.2-1.0); CO2 31.6 mmol/L (21.0-32.0); CREATININE 1.3 mg/dL (0.70-1.30); Calcium 9.7 mg/dL (8.5-10.1); Chloride 97 mmol/L (98-107); Glucose 160 mg/dL (74-106); Potassium 3.4 mmol/L (3.5-5.1); Sodium 137 mmol/L (136-145); Total Protein 8.2 g/dL (6.4-8.2)
[2024-07-08] MEDS: Dexamethasone 4 MG/ML VIAL IVP (21:15)
[2024-07-08] MEDS: Albuterol HFA 8 GM 60 PUFF INH IH (21:16)
[2024-07-08] MEDS: Acetaminophen 650 MG SUPP PR (21:39)
[2024-07-08] MEDS: Metoclopramide 10 MG TAB PO (21:39)
== END 2024-07-08 21:41 | disposition home or self-care (01) ==
PROVIDERS: Emergency Provider Registered Nurse Emergency; PCP Family Medicine
DX: R11.2 Nausea with vomiting, unspecified (principal); U07.1 COVID-19; R94.31 Abnormal electrocardiogram [ECG] [EKG]; Z79.82 Long term (current) use of aspirin; Z79.899 Other long term (current) drug therapy
CPT/HCPCS: 80053; 96361; 96374; 96375; 99284; 71045; 85025; J0131; J1100; J2765

== ENCOUNTER 2025-04-27 09:52 | Outpatient (CLI) | payer MEDICARE, SELFPAY ==
[2025-04-27 09:44] LABS: Abs Immature Grans 0.02 10^3/uL (0.0-0.06); HCT 40.6 % (40.0-50.0); HGB 13.6 g/dL (13.5-17.5); Immature Grans % 0.2 %; MCH 29.6 pg (27.0-33.0); MCHC 33.5 % (32.0-36.0); MCV 89 fL (80-95); MPV 9.8 fL (8.0-11.0); Platelet Count 280 10^3/uL (130-400); RBC 4.59 10^6/uL (4.36-5.78); RDW 13.1 % (11.8-14.1); RDW-SD 42.1 fL; WBC 8.22 10^3/uL (4.4-10.8)
[2025-04-27 10:28] LABS: Hemoglobin A1C 5.4 % (<5.7)
[2025-04-27 10:54] LABS: ALT 34 U/L (16-63); AST 18 U/L (15-37); Albumin 4.2 g/dL (3.4-5.0); Alkaline Phosphatase 78 U/L (46-116); Anion Gap 7.8 mmol/L (3-11); BUN 19 mg/dL (7-18); Bilirubin, Total 0.6 mg/dL (0.2-1.0); CO2 32.2 mmol/L (21.0-32.0); Calcium 10.1 mg/dL (8.5-10.1); Chloride 100 mmol/L (98-107); Estimated GFR 91.31 (mL/min/1.73m2); Glucose 109 mg/dL (74-106); Potassium 3.8 mmol/L (3.5-5.1); Sodium 140 mmol/L (136-145); Total Protein 7.7 g/dL (6.4-8.2); Vitamin B12 435 pg/mL (193-986)
== END 2025-04-27 09:53 | disposition home or self-care (01) ==
LOC: LBO 09:52
PROVIDERS: PCP Family Medicine; Visit Provider Internal Medicine
DX: E11.9 Type 2 diabetes mellitus without complications (principal)
CPT/HCPCS: 36415; 80053; 82607; 83036; 85025